=== PATIENT | female | born 1970 | race Caucasian/White ===

== ENCOUNTER 2024-01-14 11:31 | Day surgery (SDC) | payer OTHER ==
[~2024-01-14] VITALS: Ht 160 cm; Wt 113.9 kg
[2024-01-14] MEDS ORDERED: fentaNYL citrate 0.05 MG/ML VIAL ONE (13:26)
[2024-01-14] MEDS: fentaNYL citrate 0.05 MG/ML VIAL IVP ONE (14:08)
[2024-01-14] MEDS: LIDOCAINE 2% 100 MG/5 ML UJET TP ONE (14:14)
== END 2024-01-14 16:27 | disposition home or self-care (01) ==
LOC: MDS 11:31 → MMU 11:33 → MDS 16:27
PROVIDERS: ATTEND Internal Medicine Gastroenterology
DX: Z12.11 Encounter for screening for malignant neoplasm of colon (principal); D12.3 Benign neoplasm of transverse colon; I10 Essential (primary) hypertension; E78.00 Pure hypercholesterolemia, unspecified; G47.30 Sleep apnea, unspecified; Z79.899 Other long term (current) drug therapy
CPT/HCPCS: 45380; 45385; J3010

== ENCOUNTER 2024-03-17 08:49 | Day surgery (SDC) | payer OTHER ==
[~2024-03-17] VITALS: Ht 160 cm; Wt 113.9 kg
[2024-03-17 10:28] LABS: BASOPHILS # (AUTO) 0.1 K/uL (0.00-0.22); BASOPHILS % (AUTO) 0.8 % (0.0-2.0); EOSINOPHILS # (AUTO) 0.1 K/uL (0-0.4); HEMOGLOBIN 14.4 g/dL (12.0-16.0); LYMPHOCYTES # (AUTO) 1.6 K/uL (2.5-16.5); LYMPHOCYTES % (AUTO) 22.6 % (20.5-51.1); MEAN CORPUSCULAR HEMOGLOBIN 31 pg (27-31); MEAN CORPUSCULAR HGB CONC 34 g/dL (33-37); MEAN CORPUSCULAR VOLUME 90.5 fL (80-94); MONOCYTES # (AUTO) 0.4 K/uL (0.8-1.0); MONOCYTES % (AUTO) 5.6 % (1.7-9.3); PLATELET COUNT (AUTO) 338 K/uL (140-450); RED BLOOD CELL COUNT(AUTO) 4.64 MIL/uL (4.20-5.40); RED CELL DISTRIBUTION WIDTH 14.1 % (11.6-13.7); WHITE BLOOD COUNT (AUTO) 7.1 K/uL (4.8-10.8)
[2024-03-17 10:53] LABS: ALBUMIN 3.8 g/dL (3.4-5.0); CALCIUM 9.6 mg/dL (8.5-10.1); CREATININE 0.9 mg/dL (0.6-1.3); TOTAL BILIRUBIN 0.6 mg/dL (0.0-1.0)
[2024-03-17] MEDS ORDERED: fentaNYL citrate 0.05 MG/ML VIAL ONE (13:04)
[2024-03-17] MEDS ORDERED: MIDAZOLAM 2 MG/2 ML VIAL ONE ×2 (13:04)
[2024-03-17] MEDS ORDERED: LIDOCAINE 2% 100 MG/5 ML UJET TP ONE (13:11)
[2024-03-17] MEDS ORDERED: EPINEPHrine PFS 0.1 MG/ML SYR IVP ONE ×2 (13:37)
[2024-03-17] MEDS ORDERED: ONDANSETRON 4 MG/2 ML VIAL IVP PRN (14:55)
[2024-03-17] MEDS ORDERED: ONDANSETRON 4 MG/2 ML VIAL ONE (14:55)
[2024-03-17] MEDS ORDERED: LACTATED RINGERS 1,000 ML IV SCH (14:55)
[2024-03-17] MEDS ORDERED: diphenhydrAMINE 50 MG/ML VIAL IVP PRN (14:55)
[2024-03-17] MEDS ORDERED: METOCLOPRAMIDE 10 MG/2 ML INJ VIAL ONE (14:56)
[2024-03-17] MEDS ORDERED: KETOROLAC 30 MG/ML VIAL ONE (14:56)
[2024-03-17] MEDS ORDERED: PROPOFOL 200 MG/20 ML VIAL IV ONE ×4 (16:05)
== END 2024-03-17 17:00 | disposition home or self-care (01) ==
LOC: MDS 08:49 → MMU 08:50 → MDS 17:00
PROVIDERS: ATTEND Internal Medicine Gastroenterology
DX: Z12.11 Encounter for screening for malignant neoplasm of colon (principal); K63.5 Polyp of colon; Z86.010 Personal history of colon polyps; I10 Essential (primary) hypertension; E66.01 Morbid (severe) obesity due to excess calories; E78.00 Pure hypercholesterolemia, unspecified; Z79.899 Other long term (current) drug therapy; Z68.41 Body mass index [BMI] 40.0-44.9, adult
CPT/HCPCS: 36415; 45381; 45385; 71045; 80053; 85025; 93005; J0171; J1885; J2250; J2405; J2704; J2765; J3010; Q0092